=== PATIENT | female | born 1995 | race Caucasian/White ===

== ENCOUNTER 2017-11-26 23:27 | Emergency (ER) | payer MEDICAID ==
[~2017-11-26] VITALS: Ht 172.7 cm; Wt 147.9 kg
[2017-11-27] MEDS ORDERED: HYDROXYZINE HCL50 MG PO (00:04)
[2017-11-27] MEDS ORDERED: TRAZODONE HCL50 MG PO (00:04)
[2017-11-27] MEDS ORDERED: SEROQUEL200 MG PO (00:04)
== END 2017-11-27 00:26 | disposition home or self-care (01) ==
LOC: ED 23:27
DX: F32.9 Major depressive disorder, single episode, unspecified (principal); F41.9 Anxiety disorder, unspecified; F60.3 Borderline personality disorder; F43.10 Post-traumatic stress disorder, unspecified; Z90.89 Acquired absence of other organs; Z88.8 Allergy status to other drugs, medicaments and biological substances
CPT/HCPCS: 99283

== ENCOUNTER 2017-12-10 23:29 | Emergency (ER) | payer MEDICAID ==
[~2017-12-10] VITALS: Ht 172.7 cm; Wt 144.7 kg
[~2017-12-10 23:29] MED LIST: HYDROXYZINE HCL50 MG PO; SEROQUEL200 MG PO; TRAZODONE HCL50 MG PO
[2017-12-11] MEDS ORDERED: CYMBALTA60 MG PO (00:41)
[2017-12-11] MEDS ORDERED: WELLBUTRIN SR150 MG PO (00:41)
== END 2017-12-11 02:30 | disposition home or self-care (01) ==
LOC: ED 23:29
DX: Z00.8 Encounter for other general examination (principal); R45.851 Suicidal ideations; F32.9 Major depressive disorder, single episode, unspecified; F41.9 Anxiety disorder, unspecified; Z90.89 Acquired absence of other organs; Z90.49 Acquired absence of other specified parts of digestive tract; Z88.8 Allergy status to other drugs, medicaments and biological substances; Z79.899 Other long term (current) drug therapy
CPT/HCPCS: 80053; 80176; 81001; 84443; 84703; 85025; 93005; 93010; 99284; G0480

== ENCOUNTER 2017-12-15 20:56 | Emergency (ER) | payer OTHER ==
[~2017-12-15] VITALS: Ht 172.7 cm; Wt 144.7 kg
[~2017-12-15 20:56] MED LIST changes: +CYMBALTA60 MG PO; +WELLBUTRIN SR150 MG PO
[2017-12-16] MEDS ORDERED: PROTONIX40 MG PO (00:21)
== END 2017-12-16 00:32 | disposition home or self-care (01) ==
LOC: ED 20:56
DX: R10.13 Epigastric pain (principal); F32.9 Major depressive disorder, single episode, unspecified; F41.9 Anxiety disorder, unspecified; F43.10 Post-traumatic stress disorder, unspecified; Z88.8 Allergy status to other drugs, medicaments and biological substances
CPT/HCPCS: 80053; 81001; 83690; 84703; 85025; 99283

== ENCOUNTER 2017-12-18 21:23 | Emergency (ER) | payer OTHER ==
[~2017-12-18] VITALS: Ht 172.7 cm; Wt 319.0 kg
[~2017-12-18 21:23] MED LIST changes: +PROTONIX40 MG PO
[2017-12-19] MEDS ORDERED: PROTONIX40 MG PO (21:39)
== END 2017-12-18 23:29 | disposition home or self-care (01) ==
LOC: ED 21:23
DX: Z00.8 Encounter for other general examination (principal); Z88.8 Allergy status to other drugs, medicaments and biological substances
CPT/HCPCS: 80053; 80176; 81001; 84443; 84703; 85025; 99284; G0480

== ENCOUNTER 2017-12-19 21:25 | Emergency (ER) | payer OTHER ==
[~2017-12-19] VITALS: Ht 172.7 cm; Wt 319.0 kg
[2017-12-19] MEDS ORDERED: PROTONIX40 MG PO (21:39)
== END 2017-12-19 22:03 | disposition home or self-care (01) ==
LOC: ED 21:25
DX: R56.9 Unspecified convulsions (principal); F32.9 Major depressive disorder, single episode, unspecified; F41.9 Anxiety disorder, unspecified; F43.10 Post-traumatic stress disorder, unspecified; Z88.8 Allergy status to other drugs, medicaments and biological substances; Z79.899 Other long term (current) drug therapy
CPT/HCPCS: 99282